=== PATIENT | male | born 1950 ===

== ENCOUNTER 2016-04-24 08:01 | Inpatient (IN) | payer OTHER ==
[~2016-04-24] VITALS: Ht 175.3 cm; Wt 107.8 kg
[~2016-04-24 08:01] MED LIST: ALBUTEROL HFA60 DOSE IN; ALBUTEROL2.5 MG/3 M IN; ASPIRIN ADULT L81 MG PO; AZITHROMYCIN500 MG PO; CEPHALEXIN500 MG PO; INVOKAMET 150-51 TAB PO; LOSARTAN POTASS25 MG PO; QVAR80 MCG IN; ZOCOR20 MG PO
--- NOTE | 2016-04-24 10:01 | DIAGNOSTIC IMAGING REPORT ---
PROCEDURE: CT ABD/PELVIS WITH CONTRAST CLINICAL INDICATION: Abdominal pain, nausea and vomiting, initial encounter. TECHNIQUE: 125 ml of Isovue 300 were injected intravenously and axial images were obtained of the entire abdomen and pelvis with sagittal and coronal reformations. COMPARISON: CT abdomen/pelvis 02/18/2016. FINDINGS: ABDOMEN: There is celiac surgical changes. Mild to moderately dilated loops of mid small bowel with normal caliber of the small bowel distally. Transition point appears to be in the mid pelvis. Dependent atelectasis in both lung bases posteriorly. Normal heart size. Enlarged liver (21 cm) with steatosis. The gallbladder, pancreas, spleen, adrenal glands and kidneys are normal. Mild atherosclerosis of the aorta. PELVIS: Appendix not visualized but no evidence of acute appendicitis. Minor diverticulosis of the proximal sigmoid colon. Enlarged prostate (5.5 cm. Normal bladder. No inflammatory changes or free fluid. Small fat containing inguinal hernias. Mild degenerative changes of the spine. IMPRESSION: 1. Mild to moderate dilated loops of mid small bowel with transition point in the mid pelvis, suggestive of a small bowel obstruction, possibly from adhesions 2. 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 Hepatomegaly and steatosis 4. Minor sigmoid diverticulosis 5. Results discussed with Dr. Mcdermott All CT scans at this facility use dose modulation, iterative reconstruction, and/or weight-based dosing when appropriate to reduce radiation dose to as low as reasonably achievable.
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
--- NOTE | 2016-04-24 10:16 | ED ORDER SUMMARY ---
..... Patient: AMINAH CORREIA OrderSheet [facility] VisitID: [id number] [address] [place] [address] 66y, M Registration Date/Time: 04/24/2016 ORDER SHEET Weight: 109.3 kg (stated) Allergies: No Known Drug Allergy GENERAL ORDERS: CBC w Diff Urgent (08:17 04/24/2016 Essie Zamora) (Ack 8:24 KHoerner) (8:32 LWhalen R.N.) CMP Urgent (08:04/24/2016 Essie Zamora) (Ack 8:24 KHoerner) (8:32 LWhalen R.N.) UA-Culture if indicated Urgent (:04/24/2016 Essie Zamora) (Ack 8:24 KHoerner) (8:32 LWhalen R.N.) PT with INR Urgent (08:04/24/2016 Essie Zamora) (Ack 8:24 KHoerner) (8:32 LWhalen R.N.) Lipase Urgent (08:17 04/24/2016 Essie Zamora) (Ack 8:24 KHoerner) (8:32 LWhalen R.N.) Lactate, Serum Urgent (08:17 04/24/2016 Essie Zamora) (Ack 8:24 KHoerner) (8:32 LWhalen R.N.) Pulse oximeter (08:17 04/24/2016 Essie Zamora) (Ack 8:24 KHoerner) (8:32 LWhalen R.N.) CT Abd/Pel w Cont (No) (N/A) Urgent (08:19 04/24/2016 Essie Zamora) (Ack 8:24 KHoerner) (8:32 LWhalen R.N.) Chest 1V Urgent (09:48 04/24/2016 LWhalen R.N. verbal order read back to Elizabet MENDIOLA) (Ack 9:53 KHoerner) (10:00 KHoerner) Blood Culture (No) (N/A) Urgent (09:51 04/24/2016 Elizabet MENDIOLA) (Ack 9:53 JRoesobeida) (11:45 LWhalen R.N.) BNP Urgent (10:04/24/2016 Elizabet MENDIOLA) (Ack 10:13 Lionel) (11:45 LWhalen R.N.) CPK Urgent (10:04/24/2016 Elizabet MENDIOLA) (Ack 10:13 Lionel) (11:45 LWhalrandy R.N.) Troponin-I Urgent (10:04/24/2016 Elizabet MENDIOLA) (Ack 10:13 Lionel) (11:45 LWhalrandy R.N.) EKG - ER Stat (10:04/24/2016 Elizabet MENDIOLA) (Ack 10:11 Lionel) (10:11 Lionel) MEDICATION ORDERS: IV FLUIDS: IV NS : initial bolus 1000 mL (1000 mL/hr), then none - for X1 (NOW) (08:17 04/24/2016 Essie Zamora) (8:31 LWhalen R.N.) Morphine IV 8 mg (HIGH ALERT MEDICATION, NOW) (08:17 04/24/2016 Essie Zamora) (8:31 LWhalrandy R.N.) Zofran IV 4 mg (NOW) (08:29 04/24/2016 Essie Zamora) (8:31 LWhalrandy R.N.) IV NS : initial bolus 1000 mL (1000 mL/hr), then none - for X1 (NOW) (09:15 04/24/2016 Essie Zamora) (Ack 9:17 LWhalen R.N.) (9:50 LWhalen R.N.) Zosyn IV 3.375 gm/50mL (NOW) (09:51 04/24/2016 Elizabet MENDIOLA) (10:35 LWhalrandy R.N.) Morphine IV 4 mg (HIGH ALERT MEDICATION, NOW) (10:20 04/24/2016 LWhalrandy R.N. verbal order read back to Elizabet MENDIOLA) (10:21 LWhalen R.N.) ORDER SHEET NOTES: [Electronically signed by Miryam Hernandez R.N. (15:34 04/24/2016)] [Electronically signed by Blake Mcdermott MD (16:05 04/24/2016)] [Electronically locked/signed by Miryam Hernandez R.N. (15:34 04/24/2016)]
--- NOTE | 2016-04-24 10:16 | ED ORDER SUMMARY ---
..... Patient: AMINAH CORREIA OrderSheet [facility] VisitID: [id number] [address] [place] [address] 66y, M Registration Date/Time: 04/24/2016 ORDER SHEET Weight: 109.3 kg (stated) Allergies: No Known Drug Allergy GENERAL ORDERS: CBC w Diff Urgent (08:17 04/24/2016 Essie Zamora) (Ack 8:24 KHoerner) (8:32 LWhalen R.N.) CMP Urgent (08:04/24/2016 Essie Zamora) (Ack 8:24 KHoerner) (8:32 LWhalen R.N.) UA-Culture if indicated Urgent (:04/24/2016 Essie Zamora) (Ack 8:24 KHoerner) (8:32 LWhalen R.N.) PT with INR Urgent (08:04/24/2016 Essie Zamora) (Ack 8:24 KHoerner) (8:32 LWhalen R.N.) Lipase Urgent (08:17 04/24/2016 Essie Zamora) (Ack 8:24 KHoerner) (8:32 LWhalen R.N.) Lactate, Serum Urgent (08:17 04/24/2016 Essie Zamora) (Ack 8:24 KHoerner) (8:32 LWhalen R.N.) Pulse oximeter (08:17 04/24/2016 Essie Zamora) (Ack 8:24 KHoerner) (8:32 LWhalen R.N.) CT Abd/Pel w Cont (No) (N/A) Urgent (08:19 04/24/2016 Essie Zamora) (Ack 8:24 KHoerner) (8:32 LWhalen R.N.) Chest 1V Urgent (09:48 04/24/2016 LWhalen R.N. verbal order read back to Elizabet MENDIOLA) (Ack 9:53 KHoerner) (10:00 KHoerner) Blood Culture (No) (N/A) Urgent (09:51 04/24/2016 Elizabet MENDIOLA) (Ack 9:53 JRoesobeida) (11:45 LWhalen R.N.) BNP Urgent (10:04/24/2016 Elizabet MENDIOLA) (Ack 10:13 Lionel) (11:45 LWhalen R.N.) CPK Urgent (10:04/24/2016 Elizabet MENDIOLA) (Ack 10:13 Lionel) (11:45 LWhalrandy R.N.) Troponin-I Urgent (10:04/24/2016 Elizabet MENDIOLA) (Ack 10:13 Lionel) (11:45 LWhalrandy R.N.) EKG - ER Stat (10:04/24/2016 Elizabet MENDIOLA) (Ack 10:11 Lionel) (10:11 Lionel) MEDICATION ORDERS: IV FLUIDS: IV NS : initial bolus 1000 mL (1000 mL/hr), then none - for X1 (NOW) (08:17 04/24/2016 Essie Zamora) (8:31 LWhalen R.N.) Morphine IV 8 mg (HIGH ALERT MEDICATION, NOW) (08:17 04/24/2016 Essie Zamora) (8:31 LWhalrandy R.N.) Zofran IV 4 mg (NOW) (08:29 04/24/2016 Essie Zamora) (8:31 LWhalrandy R.N.) IV NS : initial bolus 1000 mL (1000 mL/hr), then none - for X1 (NOW) (09:15 04/24/2016 Essie Zamora) (Ack 9:17 LWhalen R.N.) (9:50 LWhalen R.N.) Zosyn IV 3.375 gm/50mL (NOW) (09:51 04/24/2016 Elizabet MENDIOLA) (10:35 LWhalrandy R.N.) Morphine IV 4 mg (HIGH ALERT MEDICATION, NOW) (10:20 04/24/2016 LWhalrandy R.N. verbal order read back to Elizabet MENDIOLA) (10:21 LWhalen R.N.) ORDER SHEET NOTES: [Electronically signed by Miryam Hernandez R.N. (15:34 04/24/2016)] [Electronically signed by Blake Mcdermott MD (16:05 04/24/2016)] [Electronically locked/signed by Miryam Hernandez R.N. (15:34 04/24/2016)]
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
--- NOTE | 2016-04-24 10:17 | DIAGNOSTIC IMAGING REPORT ---
PROCEDURE: XR CHEST 1 VIEW INDICATION: DECREASED SAT'S TECHNIQUE: Portable AP view 09:57 a.m. COMPARISON: Chest 12/21/2015 and 03/05/2013 FINDINGS: Lungs are clear. Heart and mediastinum are normal. Thorax is normal. Poor inspiration IMPRESSION: 1. No acute infiltrates
[2016-04-24] MEDS ORDERED: SYNJARDY 12.5-11 TAB (11:19)
[2016-04-24] MEDS ORDERED: TRADJENTA5 MG PO (11:19)
[2016-04-24 11:54] VITALS: BP 137/82
--- NOTE | 2016-04-24 14:16 | HISTORY AND PHYSICAL ---
ADMITTED: 04/24/2016 CHIEF COMPLAINT: 1. Abdominal pain HISTORY OF PRESENT ILLNESS: A 66-year-old male with history of recurrent small- bowel obstruction presents with a recurrence of his usual pain. He states he has had similar symptoms about twice a year and he is used to it and can identify it. He notes increasing pain over the last day, associated with bloating and nausea and lack of appetite. He therefore presented to the [facility] for evaluation. Pain is described as sharp. He did not have any vomiting or diarrhea and has not had fevers or chills. MEDICAL/SURGICAL HISTORY: Past medical history remarkable for diabetes, hypertension, recurrent small bowel obstructions, hyperlipidemia, hemorrhoids. He has also had diverticulitis. Surgeries: Abdominal surgery, appendectomy, and cyst removal. MEDICATIONS: 1. Aspirin 325 mg p.o. daily. 2. Losartan 25 mg p.o. daily. 3. Simvastatin 20 mg p.o. daily. 4. Synjardy 12.5/100 mg p.o. b.i.d. 5. Tradjenta 5 mg p.o. daily. 6. ProAir puffer 2 puffs q.4 hours p.r.n. wheezing. 7. QVAR 80 mcg 2 puffs b.i.d. 8. Voltaren gel p.r.n. leg pain. ALLERGIES: 1. LISINOPRIL CAUSES COUGH. 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 Has 5 children. Habits: Smoking, none. Alcohol, none. Drug use, none. FAMILY HISTORY: Mother had an MN. Father at age 39 from congestive heart failure. Two siblings have had protein C deficiency and myocardial infarctions. REVIEW OF SYSTEMS: The patient denies URI symptoms, specifically denying cough, shortness of breath, wheezing, rhinitis, sore throat. General: Denies fevers, chills, malaise. Respiratory: Denies shortness of breath, wheezing, or cough. Cardiovascular: Denies palpitations, chest pain, or paroxysmal nocturnal dyspnea. Gastrointestinal: See above. Genitourinary: Denies dysuria, frequency, or hematuria. Musculoskeletal: Denies joint pain, swelling or restricted range of motion. Skin: Denies rash, itching or lesions. PHYSICAL EXAMINATION: GENERAL: Well-developed, well-nourished male in mild discomfort at the time of my evaluation. VITAL SIGNS: Blood pressure 131/82, heart rate 79, respirations 20, SaO2 of 95%. HEENT: Clear. NECK: Supple, without adenopathy or thyromegaly. CHEST: Clear to auscultation and percussion. HEART: Regular rate and rhythm without murmur. ABDOMEN: Mildly distended, with scant bowel sounds and moderate, diffuse tenderness, no rigidity. No guarding, no masses palpable. BACK: Straight, without CVA tenderness. Genitourinary/Rectal: Deferred. EXTREMITIES: Without cyanosis, clubbing, or edema. NEUROLOGIC: Intact and symmetric. SKIN: Unremarkable. LAB/IMAGING: EKG shows sinus rhythm with possible anterior infarct per EKG reading, but unchanged from prior. Chest x-ray is clear. CT abdomen shows small bowel obstruction, hepatomegaly, steatosis, and mild sigmoid diverticulosis. Labs: WBC 16.9, hemoglobin 17.9, hematocrit 55.2, platelets 229. INR 1.0. BNP 12.8. CK 99, troponin less than 0.05. Lactic acid 4.5, glucose 208, BUN 19, creatinine 1.1, sodium 142, potassium 4.2, chloride 104, bicarbonate 21. Bilirubin 0.8, alkaline phosphatase 76, AST 55, ALT 95. Lipase 245. IMPRESSION: 1. Small-bowel obstruction. 2. Possible early sepsis. Blood cultures pending. 3. Possible peritonitis. Blood cultures are pending. PLAN: Admit. The patient given an initial dose of IV antibiotics. Blood cultures are in place. Surgical consultation obtained with Dr. Gallego.
[2016-04-24 14:45] VITALS: BP 133/81
--- NOTE | 2016-04-24 16:05 | ED MAR SUMMARY ---
..... Medication Administration Record [facility] [address] [place] [address] Patient: AMINAH CORREIA Visit ID: [id number] 66y, M Weight: 109.3 kg Height/Length: 69 in BMI: 35.6 ALLERGIES: No Known Drug Allergy Start 08:21 04/24/2016 Miryam Hernandez R.N., Stop 09:49 04/24/2016 Miryam Hernandez R.N. Medication Administered: IV NS (SALINE), Dose: IV Fluids over 1 hour(s), Rate: 1000 mL/hr, Dispensed: 1000 mL bag, Site: #1 right hand. Medication Ordered: IV NS : initial bolus 1000 mL (1000 mL/hr), then none - for X1 (NOW). Given 08:26 04/24/2016 Miryam Hernandez R.N. Medication Administered: MORPHINE [IVP], Dose: 8 mg IVP over 2 minute(s), Site: #1 right hand. Medication Ordered: Morphine IV 8 mg (HIGH ALERT MEDICATION, NOW). Given 08:31 04/24/2016 Miryam Hernandez R.N. Medication Administered: ZOFRAN [IVP] (ONDANSETRON HCL), Dose: 4 mg IVP over 2 minute(s), Site: #1 right hand. Medication Ordered: Zofran IV 4 mg (NOW). Start 09:50 04/24/2016 Miryam Hernandez R.N., Continued Upon Disposition 11:36 04/24/2016 Miryam Hernandez R.N. Medication Administered: IV NS (SALINE), Dose: IV Fluids over 1 hour(s), Rate: 1000 mL/hr, Dispensed: 1000 mL bag, Site: #1 right hand. Medication Ordered: IV NS : initial bolus 1000 mL (1000 mL/hr), then none - for X1 (NOW). Given 10:16 04/24/2016 Miryam Hernandez R.N. Medication Administered: MORPHINE [IVP], Dose: 4 mg IVP over 2 minute(s), Site: #1 right hand. Medication Ordered: Morphine IV 4 mg (HIGH ALERT MEDICATION, NOW). Start 10:35 04/24/2016 Miryam Hernandez RWillN., Stop 11:20 04/24/2016 Miryam Hernandez R.N. Medication Administered: ZOSYN [IVPB] (PIPERACILLIN SOD-TAZOBACTAM SO), Dose: 3.375 gm IVPB over 1 hour(s), Rate: 100 mL/hr, Dispensed: 50 mL bag, Site: #1 right hand. Medication Ordered: Zosyn IV 3.375 gm/50mL (NOW).
--- NOTE | 2016-04-24 16:05 | ED MED RECONCILIATION SUMMARY ---
Patient: AMINAH CORREIA Medication Reconciliation Report [facility] VisitID: [id number] [address] [place] [address] 66y, M Registration Date/Time: 04/24/2016 Weight: 109.3 kg Height/Length: 69 in. BMI: 35.6 ALLERGIES: No Known Drug Allergy The patient's Home Medications are listed below: THE FOLLOWING MEDICATIONS NEED TO BE RECONCILED: Aspirin Oral (325 mg) 1 tablet, daily Losartan Potassium Oral (25 mg) 1 tablet, daily Qvar Inhalation (80 mcg/act) 2 puffs, BID Simvastatin Oral (20 mg) 1 tablet, daily Synjardy 12.06/999 mg 1 tablet BID Tradjenta Oral (5 mg) 1 tablet, daily The source(s) of the original Home Medication information: Not obtained. The following Medications were given to the patient in the Emergency Department: IV NS IV Fluids bolus 0, then 1000 mL/hr, administered: 04/24/2016 8:21:00 AM Morphine [IVP] IVP 8 mg, administered: 04/24/2016 8:26:00 AM Zofran [IVP] IVP 4 mg, administered: 04/24/2016 8:31:00 AM IV NS IV Fluids bolus 0, then 1000 mL/hr, administered: 04/24/2016 9:50:00 AM Morphine [IVP] IVP 4 mg, administered: 04/24/2016 10:16:00 AM Zosyn [IVPB] IVPB bolus 0, then 3.375 gm 100 mL/hr, administered: 04/24/2016 10:35:00 AM The following Medications were prescribed to the patient: None.
--- NOTE | 2016-04-24 16:05 | ED MAR SUMMARY ---
..... Medication Administration Record [facility] [address] [place] [address] Patient: AMINAH CORREIA Visit ID: [id number] 66y, M Weight: 109.3 kg Height/Length: 69 in BMI: 35.6 ALLERGIES: No Known Drug Allergy Start 08:21 04/24/2016 Miryam Hernandez R.N., Stop 09:49 04/24/2016 Miryam Hernandez R.N. Medication Administered: IV NS (SALINE), Dose: IV Fluids over 1 hour(s), Rate: 1000 mL/hr, Dispensed: 1000 mL bag, Site: #1 right hand. Medication Ordered: IV NS : initial bolus 1000 mL (1000 mL/hr), then none - for X1 (NOW). Given 08:26 04/24/2016 Miryam Hernandez R.N. Medication Administered: MORPHINE [IVP], Dose: 8 mg IVP over 2 minute(s), Site: #1 right hand. Medication Ordered: Morphine IV 8 mg (HIGH ALERT MEDICATION, NOW). Given 08:31 04/24/2016 Miryam Hernandez R.N. Medication Administered: ZOFRAN [IVP] (ONDANSETRON HCL), Dose: 4 mg IVP over 2 minute(s), Site: #1 right hand. Medication Ordered: Zofran IV 4 mg (NOW). Start 09:50 04/24/2016 Miryam Hernandez R.N., Continued Upon Disposition 11:36 04/24/2016 Miryam Hernandez R.N. Medication Administered: IV NS (SALINE), Dose: IV Fluids over 1 hour(s), Rate: 1000 mL/hr, Dispensed: 1000 mL bag, Site: #1 right hand. Medication Ordered: IV NS : initial bolus 1000 mL (1000 mL/hr), then none - for X1 (NOW). Given 10:16 04/24/2016 Miryam Hernandez R.N. Medication Administered: MORPHINE [IVP], Dose: 4 mg IVP over 2 minute(s), Site: #1 right hand. Medication Ordered: Morphine IV 4 mg (HIGH ALERT MEDICATION, NOW). Start 10:35 04/24/2016 Miryam Hernandez RWillN., Stop 11:20 04/24/2016 Miryam Hernandez R.N. Medication Administered: ZOSYN [IVPB] (PIPERACILLIN SOD-TAZOBACTAM SO), Dose: 3.375 gm IVPB over 1 hour(s), Rate: 100 mL/hr, Dispensed: 50 mL bag, Site: #1 right hand. Medication Ordered: Zosyn IV 3.375 gm/50mL (NOW).
--- NOTE | 2016-04-24 16:05 | ED DISCHARGE INSTRUCTIONS ---
Patient: AMINAH CORREIA General Instructions [facility] VisitID: [id number] [address] [place] [address] 66y, M Registration Date/Time: 04/24/2016 Bowel obstruction. Sepsis. Peritonitis. (Electronically signed by Blake Mcdermott MD 04/24/2016 16:05)
--- NOTE | 2016-04-24 16:05 | ED MED RECONCILIATION SUMMARY ---
Patient: AMINAH CORREIA Medication Reconciliation Report [facility] VisitID: [id number] [address] [place] [address] 66y, M Registration Date/Time: 04/24/2016 Weight: 109.3 kg Height/Length: 69 in. BMI: 35.6 ALLERGIES: No Known Drug Allergy The patient's Home Medications are listed below: THE FOLLOWING MEDICATIONS NEED TO BE RECONCILED: Aspirin Oral (325 mg) 1 tablet, daily Losartan Potassium Oral (25 mg) 1 tablet, daily Qvar Inhalation (80 mcg/act) 2 puffs, BID Simvastatin Oral (20 mg) 1 tablet, daily Synjardy 12.06/999 mg 1 tablet BID Tradjenta Oral (5 mg) 1 tablet, daily The source(s) of the original Home Medication information: Not obtained. The following Medications were given to the patient in the Emergency Department: IV NS IV Fluids bolus 0, then 1000 mL/hr, administered: 04/24/2016 8:21:00 AM Morphine [IVP] IVP 8 mg, administered: 04/24/2016 8:26:00 AM Zofran [IVP] IVP 4 mg, administered: 04/24/2016 8:31:00 AM IV NS IV Fluids bolus 0, then 1000 mL/hr, administered: 04/24/2016 9:50:00 AM Morphine [IVP] IVP 4 mg, administered: 04/24/2016 10:16:00 AM Zosyn [IVPB] IVPB bolus 0, then 3.375 gm 100 mL/hr, administered: 04/24/2016 10:35:00 AM The following Medications were prescribed to the patient: None.
--- NOTE | 2016-04-24 16:05 | ED DISCHARGE INSTRUCTIONS ---
Patient: AMINAH CORREIA General Instructions [facility] VisitID: [id number] [address] [place] [address] 66y, M Registration Date/Time: 04/24/2016 Bowel obstruction. Sepsis. Peritonitis. (Electronically signed by Blake Mcdermott MD 04/24/2016 16:05)
[2016-04-24 18:26] VITALS: BP 146/78
[2016-04-25 02:01] VITALS: BP 131/79
[2016-04-25 06:53] VITALS: BP 130/73
--- NOTE | 2016-04-25 07:19 | Progress Note ---
Subjective General Brief hx: 66 year old male admitted with: 1. Small-bowel obstruction. 2. Possible early sepsis. Blood cultures pending. 3. Possible peritonitis. Blood cultures are pending. States he is doing better this am. Feels totally normal after last night. No cp, sob. Physical Exam Vital Signs / I&Os Vital Signs Date Time Temp Pulse Resp B/P Pulse O2 O2 Flow FiO2 Ox Delivery Rate 04/25 0653 98.1 68 16 130/73 95 Nasal 0.0 Cannula 04/25 0201 98.2 65 16 131/79 95 Nasal 2.0 Cannula 04/24 1826 97.3 74 20 146/78 90 Nasal 2.0 Cannula 04/24 1445 97.5 75 22 133/81 90 Nasal 2.0 Cannula 04/24 1306 2.0 04/24 1225 2.0 04/24 1154 98.2 73 22 137/82 Nasal 4.0 Cannula I&O 04/25 0000 04/24 1600 04/24 0800 Intake Total 993 Output Total 2525 Balance -1532 General Appearance Alert, Cooperative Lungs Clear to auscultation, Normal air movement Cardiovascular Regular rate and rhythm Abdomen Soft, has minimal tenderness that is diffuse (always that way a week or 2 post episode per patient.) Extremities No edema LAB Results Laboratory Tests 04/25 04/24 04/24 04/24 0515 1130 0835 0835 Chemistry Plasma Sodium (136 - 145 mmol/L) 143 Plasma Potassium (3.5 - 5.1 mmol/L) 3.9 Plasma Chloride (98 - 107 mmol/L) 108 CO2 (Enzymatic) (21 - 32 mmol/L) 25 BUN (7 - 18 mg/dL) 15 Creatinine (0.6 - 1.3 mg/dL) 0.8 Est GFR ( Amer) (mL/min) >60 Est GFR (Non-Af Amer) (mL/min) >60 Glucose (70 - 110 mg/dL) 142 Lactic Acid (0.4 - 2.0 mmol/L) 4.5 Plasma Calcium (8.5 - 10.1 mg/dL) 8.2 Plasma Magnesium (1.8 - 2.4 mg/dL) 2.0 Total Bilirubin (0.0 - 1.0 mg/dL) 1.0 AST (15 - 37 U/L) 27 ALT (12 - 78 U/L) 60 Alkaline Phosphatase (46 - 116 U/L) 39 Creatine Kinase (24 - 260 U/L) 99 Troponin (0.00 - 1.5 ng/mL) <0.05 Total Protein (6.4 - 8.2 g/dL) 6.2 Albumin (3.3 - 5.0 g/dL) 2.9 Lipase (73 - 393 U/L) 100 Hematology WBC (4.5 - 11.5 K/uL) 5.8 RBC (4.50 - 5.90 M/uL) 5.06 Hgb (13.5 - 17.5 gm/dL) 14.7 Hct (41.0 - 53.0 %) 45.2 MCV (80 - 100 fL) 89 MCH (26 - 34 pg) 29 RDW (11.6 - 14.8 %) 15.1 Neut % (Auto) (50 - 75 %) 67.4 Lymph % (Auto) (25 - 40 %) 19.1 [place] % (Auto) (3 - 14 %) 11.5 Eos % (Auto) (0 - 4 %) 1.5 Baso % (Auto) (0 - 2 %) 0.5 Plt Count, EDTA (150 - 400 K/uL) 188 PUBS MCHC (31 - 37 g/dL) 33 Urines Urine Color YELLOW Urine Appearance CLEAR Urine pH (5.0 - 8.0) 5.5 Ur Specific [place] (1.010 - 1.030) 1.010 Urine Protein (NEGATIVE) NEGATIVE Urine Ketones (NEGATIVE) TRACE Urine Blood (NEGATIVE) NEGATIVE Urine Nitrite (NEGATIVE) NEGATIVE Urine Bilirubin (NEGATIVE) NEGATIVE Urine Urobilinogen (0.2 - 1.0 EU/dL) 0.2 Ur Leukocyte Esterase (NEGATIVE) NEGATIVE Urine RBC (0 - 1 rbc/hpf) NONE SEEN Urine WBC (0 - 1 wbc/hpf) 0-1 Ur Epithelial Cells (0 - 5 EPI/hpf) NONE SEEN Urine Bacteria (NONE SEEN) NONE SEEN Urine Glucose (NEGATIVE) 3+ Urine Comment CULT NOT INDICATED 04/24 04/24 0835 0835 Chemistry Plasma Sodium (136 - 145 mmol/L) 142 Plasma Potassium (3.5 - 5.1 mmol/L) 4.2 Plasma Chloride (98 - 107 mmol/L) 104 CO2 (Enzymatic) (21 - 32 mmol/L) 21 BUN (7 - 18 mg/dL) 19 Creatinine (0.6 - 1.3 mg/dL) 1.1 Est GFR ( Amer) (mL/min) >60 Est GFR (Non-Af Amer) (mL/min) >60 Glucose (70 - 110 mg/dL) 208 Plasma Calcium (8.5 - 10.1 mg/dL) 9.6 Total Bilirubin (0.0 - 1.0 mg/dL) 0.8 AST (15 - 37 U/L) 55 ALT (12 - 78 U/L) 95 Alkaline Phosphatase (46 - 116 U/L) 76 B-Natriuretic Peptide (5 - 100 pg/ml) 12.8 Total Protein (6.4 - 8.2 g/dL) 7.7 Albumin (3.3 - 5.0 g/dL) 4.3 Lipase (73 - 393 U/L) 245 Coagulation INR (0.8 - 1.2) 1.0 Hematology WBC (4.5 - 11.5 K/uL) 16.9 RBC (4.50 - 5.90 M/uL) 6.22 Hgb (13.5 - 17.5 gm/dL) 17.9 Hct (41.0 - 53.0 %) 55.2 MCV (80 - 100 fL) 89 MCH (26 - 34 pg) 29 RDW (11.6 - 14.8 %) 14.6 Neut % (Auto) (50 - 75 %) 86.2 Lymph % (Auto) (25 - 40 %) 9.9 [place] % (Auto) (3 - 14 %) 3.6 Eos % (Auto) (0 - 4 %) 0.2 Baso % (Auto) (0 - 2 %) 0.1 Plt Count, EDTA (150 - 400 K/uL) 229 RBC Morphology 1+ ANISOCYTOSIS PUBS MCHC (31 - 37 g/dL) 32 Microbiology Date/Time Procedure - Status Source Growth 04/24 1030 Blood Culture - RECD BLOOD 04/24 1015 Blood Culture - RECD BLOOD Assessment and Plan Problem List 1. Small bowel obstruction Plan States it "broke last night" stooling and flatus. Feels great and would like to d/c home. No concerns per patient. 2. Diabetes mellitus Plan stable 3. Renal insufficiency Plan stable 4. Peritonitis Plan Has tenderness but normal and not wanting abx if labs etc normal. Will call if worsens at all. d/c today 5. Lactic acid acidosis Plan re check on lactic acid this am
--- NOTE | 2016-04-25 07:21 | Provider's Discharge Care Plan ---
Problem, Goal, Plan Problem List 1. Small bowel obstruction Instructions: Follow up as needed, advance diet as tolerates 2. Diabetes mellitus Instructions: Take meds as directed 3. Peritonitis Instructions: if any increase in abdominal pain or fevers etc then call right away
== END 2016-04-25 08:50 | disposition home or self-care (01) | DRG 389 ==
LOC: ED SRH 08:01 → TRANS SRH 10:21 → ACUTE2 SRH 11:45
PROVIDERS: ADMIT Emergency Medicine
DX: K56.60 Unspecified intestinal obstruction (principal); R11.0 Nausea; E87.2 Acidosis; E11.8 Type 2 diabetes mellitus with unspecified complications; J44.9 Chronic obstructive pulmonary disease, unspecified; N28.9 Disorder of kidney and ureter, unspecified; I10 Essential (primary) hypertension
CPT/HCPCS: 85241; 90004; 90065; 90074; 90098; 90100; 90616; 91320; 92031; 92235; 92610; 92720; 94060; 95059

== ENCOUNTER 2016-08-08 10:00 | Inpatient (IN) | payer OTHER ==
[~2016-08-08] VITALS: Ht 175.3 cm; Wt 111.8 kg
[~2016-08-08 10:00] MED LIST changes: +SYNJARDY 12.5-11 TAB; +TRADJENTA5 MG PO
--- NOTE | 2016-08-08 11:27 | DIAGNOSTIC IMAGING REPORT ---
PROCEDURE: XR ABDOMEN 1 VIEW INDICATION: ABDOMINAL PAIN TECHNIQUE: AP supine and upright views. COMPARISON: Abdominal film 02/18/2016 FINDINGS: Bowel gas pattern is normal. Epigastric surgical clips. No masses or unusual calcifications. Atherosclerosis. Osseous structures are unremarkable. IMPRESSION: 1. Nonspecific bowel gas pattern 2. Epigastric surgical changes
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
--- NOTE | 2016-08-08 13:14 | ED ORDER SUMMARY ---
..... Patient: AMINAH CORREIA OrderSheet [facility] VisitID: [id number] [address] [place] [address] 66y, M Registration Date/Time: 08/08/2016 ORDER SHEET Weight: 108.8 kg (stated) Allergies: No Known Drug Allergy GENERAL ORDERS: CBC w Diff Urgent (10:28 08/08/2016 JBoardley R.N. per protocol) (Ack 10:47 LNations ER Tech1) (10:49 JBoardley R.N.) CMP Urgent (10:28 08/08/2016 JBoardley R.N. per protocol) (Ack 10:47 LNations ER Tech1) (10:49 JBoardley R.N.) Abdomen 1V Urgent (10:32 08/08/2016 JBoardley R.N. verbal order read back to Elizabet MENDIOLA) (10:42 JBoardley R.N.) UA-Culture if indicated Urgent (11:32 08/08/2016 Elizabet MENDIOLA) (Ack 11:40 LNations ER Tech1) (11:56 JBoardley R.N.) Amylase Urgent (11:32 08/08/2016 Elizabet MENDIOLA) (Ack 11:40 LNations ER Tech1) (11:57 JBoardley R.N.) Lipase Urgent (11:32 08/08/2016 Elizabet MENDIOLA) (Ack 11:40 LNations ER Tech1) (11:57 JBoardley R.N.) US Abdomen Limited (No) Urgent (12:23 08/08/2016 Elizabet MENDIOLA) (Ack 12:24 LNations ER Tech1) (13:08 JBoardley R.N.) MEDICATION ORDERS: Levsin SL 0.125 mg (NOW) (14:06 08/08/2016 JBoardley R.N. verbal order read back to Kavin Zarate) (14:07 JBoardley R.N.) IV FLUIDS: Zofran IV 4 mg (NOW) (10:28 08/08/2016 JBoardley R.N. per protocol) (10:29 JBoardley R.N.) IV NS : initial bolus none -, then 1000 mL/hr for X1 (NOW) (10:28 08/08/2016 JBoardley R.N. per protocol) (10:28 JBoardley R.N.) IV NS : initial bolus none -, then 250 mL/hr for X4 (NOW) (11:21 08/08/2016 JBoardley R.N. per protocol) (11:22 JBoardley R.N.) Dilaudid IV 1 mg (HIGH ALERT MEDICATION, NOW) (11:31 08/08/2016 Elizabet MENDIOLA) (Ack 11:32 JBoardley R.N.) (11:39 JBoardley R.N.) Zofran IV 4 mg (NOW) (11:39 08/08/2016 JBoardley R.N. verbal order read back to Elizabet MENDIOLA) (11:40 JBoardley R.N.) Dilaudid IV 0.5 mg (HIGH ALERT MEDICATION, NOW) (13:56 08/08/2016 JBoardley R.N. verbal order read back to Elizabet MENDIOLA) (13:56 JBoardley R.N.) ORDER SHEET NOTES: [Electronically signed by Conner Taveras R.N. (14:35 08/08/2016)] [Electronically signed by Blake Mcdermott MD (17:31 08/08/2016)] [Electronically locked/signed by Conner Taveras R.N. (14:35 08/08/2016)]
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
--- NOTE | 2016-08-08 13:14 | ED ORDER SUMMARY ---
..... Patient: AMINAH CORREIA OrderSheet [facility] VisitID: [id number] [address] [place] [address] 66y, M Registration Date/Time: 08/08/2016 ORDER SHEET Weight: 108.8 kg (stated) Allergies: No Known Drug Allergy GENERAL ORDERS: CBC w Diff Urgent (10:28 08/08/2016 JBoardley R.N. per protocol) (Ack 10:47 LNations ER Tech1) (10:49 JBoardley R.N.) CMP Urgent (10:28 08/08/2016 JBoardley R.N. per protocol) (Ack 10:47 LNations ER Tech1) (10:49 JBoardley R.N.) Abdomen 1V Urgent (10:32 08/08/2016 JBoardley R.N. verbal order read back to Elizabet MENDIOLA) (10:42 JBoardley R.N.) UA-Culture if indicated Urgent (11:32 08/08/2016 Elizabet MENDIOLA) (Ack 11:40 LNations ER Tech1) (11:56 JBoardley R.N.) Amylase Urgent (11:32 08/08/2016 Elizabet MENDIOLA) (Ack 11:40 LNations ER Tech1) (11:57 JBoardley R.N.) Lipase Urgent (11:32 08/08/2016 Elizabet MENDIOLA) (Ack 11:40 LNations ER Tech1) (11:57 JBoardley R.N.) US Abdomen Limited (No) Urgent (12:23 08/08/2016 Elizabet MENDIOLA) (Ack 12:24 LNations ER Tech1) (13:08 JBoardley R.N.) MEDICATION ORDERS: Levsin SL 0.125 mg (NOW) (14:06 08/08/2016 JBoardley R.N. verbal order read back to Kavin Zarate) (14:07 JBoardley R.N.) IV FLUIDS: Zofran IV 4 mg (NOW) (10:28 08/08/2016 JBoardley R.N. per protocol) (10:29 JBoardley R.N.) IV NS : initial bolus none -, then 1000 mL/hr for X1 (NOW) (10:28 08/08/2016 JBoardley R.N. per protocol) (10:28 JBoardley R.N.) IV NS : initial bolus none -, then 250 mL/hr for X4 (NOW) (11:21 08/08/2016 JBoardley R.N. per protocol) (11:22 JBoardley R.N.) Dilaudid IV 1 mg (HIGH ALERT MEDICATION, NOW) (11:31 08/08/2016 Elizabet MENDIOLA) (Ack 11:32 JBoardley R.N.) (11:39 JBoardley R.N.) Zofran IV 4 mg (NOW) (11:39 08/08/2016 JBoardley R.N. verbal order read back to Elizabet MENDIOLA) (11:40 JBoardley R.N.) Dilaudid IV 0.5 mg (HIGH ALERT MEDICATION, NOW) (13:56 08/08/2016 JBoardley R.N. verbal order read back to Elizabet MENDIOLA) (13:56 JBoardley R.N.) ORDER SHEET NOTES: [Electronically signed by Conner Taveras R.N. (14:35 08/08/2016)] [Electronically signed by Blake Mcdermott MD (17:31 08/08/2016)] [Electronically locked/signed by Conner Taveras R.N. (14:35 08/08/2016)]
--- NOTE | 2016-08-08 13:38 | DIAGNOSTIC IMAGING REPORT ---
PROCEDURE: US ABDOMEN ULTRASOUND-LIMITED INDICATION: PAIN TECHNIQUE: Brennan scale and color Doppler sonographic images of the abdomen were obtained without comparison. COMPARISON: Abdomen CT dated 04/24/2016 FINDINGS: The liver is enlarged and demonstrates dense increased echogenicity. Ultrasound of penetration of the liver was difficult. The gallbladder is normal without stones or sludge. The wall is normal thickness measuring 2.8 mm No pericholecystic fluid or Mercado sign. The extrahepatic common duct is at the upper limits of normal measuring 7.6 mm The visualized pancreas is normal without ductal dilatation or peripancreatic fluid collection. The abdominal aorta is normal in its course and caliber. The retrohepatic inferior vena cava is patent. There is appropriate hepatopetal flow in the portal vein. The right kidney measures 13.4 cm in length. There is a trace of ascites in the right upper quadrant. Prominent dilated loops of bowel were also noted. IMPRESSION: 1. Hepatomegaly and cirrhosis. Trace of ascites in the right upper quadrant.
--- NOTE | 2016-08-08 14:38 | Progress Note ---
Subjective General Patient with ? SBO vs pancreatitis, hx of DM, htn, high chol. Plan: IVF, pain meds, NPO, levsin, surgical consult.
--- NOTE | 2016-08-08 14:38 | Progress Note ---
Subjective General Patient with ? SBO vs pancreatitis, hx of DM, htn, high chol. Plan: IVF, pain meds, NPO, levsin, surgical consult.
[2016-08-08 14:45] VITALS: BP 134/66
--- NOTE | 2016-08-08 15:43 | HISTORY AND PHYSICAL ---
ADMITTED: 08/08/2016 CHIEF COMPLAINT: 1. Abdominal pain HISTORY OF PRESENT ILLNESS: The patient states that he woke up at about 4 a.m. with severe abdominal pain. The pain is coming and going, with a crampy sensation. He started out with nausea and vomiting as well. He has had multiple episodes similar in the past from small-bowel obstruction, and he went in to the emergency department for further evaluation. In the ED, they did a workup that showed some nonspecific findings, and also some elevation in lipase, and he is currently being admitted for abdominal pain and pancreatitis and abnormal ultrasound results. MEDICAL/SURGICAL HISTORY: Past medical history: He has had diabetes, hypertension, obesity, arthritis, abnormal liver function tests, hypercholesterolemia, osteoarthritis, and family history of heart disease. Past surgical history: Abdominal surgery back in 1986, and occasionally small bowel obstructions since. MEDICATIONS: 1. Omeprazole 20 mg p.o. daily. 2. Tradjenta 5 mg p.o. daily. 3. Synjardy 12.06/999, one p.o. b.i.d. 4. QVAR 80 mcg 2 puffs p.o. daily. 5. Aspirin 81 mg p.o. daily. 6. Simvastatin 20 mg p.o. daily. 7. Losartan 25 mg p.o. daily. 8. Triamcinolone acetonide cream, apply b.i.d. as needed for itching rash. 9. ProAir HFA 2 puffs q.4 hours p.r.n. itching. ALLERGIES: 1. LISINOPRIL. SOCIAL HISTORY: He is , Jehovah'S Witness, retired from the [employer]. He has 5 children. FAMILY HISTORY: HIs mom at a young age of a heart attack. Father at age 39 of CHF. Brother had protein C deficiency, and sister had protein C deficiency, both have had heart attacks. REVIEW OF SYSTEMS: He has the abdominal pain and some cramps, nausea, vomiting, decreased bowel sounds, no passing of gas or stool since the abdominal pain has come on, with similar episodes in the past. No problems with strength or sensation or fevers. PHYSICAL EXAMINATION: GENERAL: He is an alert male who is lying in the emergency department, talking in full sentences, in no apparent distress until he gets a crampy abdominal pain, and then moans. VITAL SIGNS: Blood pressure 125/71, heart rate of 66, respirations 14, saturating 98% on room air, temperature is 98. HEENT: Extraocular movements intact. Pupils equal, round, and reactive to light. Oropharynx is with moist mucous membranes. NECK: Supple, without lymphadenopathy. LUNGS: Clear to auscultation bilaterally. HEART: Regular rate and rhythm. No murmur. ABDOMEN: Distended and diffusely mildly tender, and then crampy pain at times. GENITOURINARY: Deferred. RECTAL: Deferred. NEUROLOGIC: Cranial nerves II-XII intact. Strength and sensation grossly intact. LAB/IMAGING: CBC: White count 8.6, hematocrit 52.7, platelets of 195. Comprehensive metabolic panel: Glucose 185, BUN 17, creatinine 1.0, sodium 136, potassium 4.2, chloride of 100, carbon dioxide 24, calcium 8.8, total protein 7.9, albumin 4.2, total bilirubin 0.8, alkaline phosphatase 72, AST of 95, ALT of 119, lipase of 526, amylase of 95. A urinalysis is with 3+ glucose, specific gravity 1.015, and negative leukocyte esterase, negative nitrite. X-ray abdomen shows nonspecific bowel gas patterns and epigastric surgical changes. An ultrasound of the abdomen with comparison of a CT from 08/2016 has hepatomegaly and cirrhosis, trace ascites in the right upper quadrant. IMPRESSION: 1. This is a 66-year-old male who presents to the emergency department with abdominal pain and abnormal lipase He also has some nonspecific bowel gas changes on abdominal x-ray. He has a history of small-bowel obstruction that is recurrent. He has abnormal liver function tests and lipase. He is being admitted for possible small- bowel obstruction versus pancreatitis versus other process. PLAN: We will plan for n.p.o., IV fluids, IV pain medicines, diabetes sliding scale. THE PATIENT IS DESIRING TO BE A FULL CODE, and discussed this in detail. Also he will have a surgical consult regarding his abdominal pain issues. He will also try some Levsin to see if this helps out with his crampy symptoms, and I anticipate he will be in the hospital for potentially a short term, less than 48 hours is what I hope for. If he does not start improving by tomorrow, I would anticipate that we will need to convert him to inpatient status, depending on what surgery states.
[2016-08-08 16:32] VITALS: BP 136/48
--- NOTE | 2016-08-08 17:29 | Consultation Report ---
Admission Admit Date 08/08/16 History Chief Complaint Abdominal pain History of Present Illness 66-year-old male who approximately 12 hours prior to admission developed acute onset abdominal pain. Located mid abdomen, nonradiating, worsened throughout the day again remaining localized. He described as being colicky in nature and severe. Vomited 3 times. Denies any fever or chills. Patient had a bowel movement on the day of admission, but has not passed any flatus since yesterday. Patient's last hospitalization at [facility] loose in April 2016 he was hospitalized for one day, with similar complaints and discharged before the consulting surgeon, could evaluate the patient. He states that he has been admitted to [facility] 9-10 times similar symptoms. In 1988. Patient underwent exploratory laparotomy to remove this cyst that was located between his bowel and his bladder, the lesion was benign, proximal 6 inches of bowel was removed. [facility] Patient History 1. Small bowel obstruction 2. Diabetes mellitus 3. Pancreatitis 4. Abdominal pain Social History . Forceps and one natural daughter. They are all alive and well. 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 PAST MEDICAL/SURGICAL HISTORY: As described previously, for laparotomy. Tonsillectomy adenoidectomy. History of hypertension. Cmg-byrqzxa-scrdxtnfv diabetic. COPD FAMILY HISTORY: Mother at age 86 natural causes. Father age 39 [place]. Family carried diagnosis of protein C deficiency. Patient had a brother 6 sisters, 4 brothers , one from an MT, one from cancer of unknown etiology, protein C deficiency, and neck fracture. 3 sisters , one from a pulmonary embolus, one from protein C deficiency and the last sister from pneumonia Medications and Allergies Medications Current Medications Sig/Pramod Start time Last Medication Dose Route Stop Time Status Admin Hydromorphone HCl 1 MG Q1H PRN 08/08 1700 AC IV Hydromorphone HCl 2 MG Q1H PRN 08/08 1700 AC 08/08 IV 1703 Ondansetron HCl 4 MG Q6H PRN 08/08 1645 AC 08/08 IV 1646 Insulin Human Lispro See Dose ACHS 08/08 1630 AC Insts (1) SC Acetaminophen 650 MG Q6H PRN 08/08 1400 AC PO Dextrose 50 ML PRN PRN 08/08 1400 AC IV Hyoscyamine Sulfate See Dose Q4H PRN 08/08 1400 AC Insts (2) SL Sodium Chloride 1,000 ML ASDIRECTED 08/08 1400 AC 08/08 IV 1444 Dose Instructions: (1)Insulin Human Lispro: LOW DOSE: ACCUCHECK AND SLIDING SCALE >>To change sliding scale DISCONTINUE this order and enter a NEW order. Thanks< (2)Hyoscyamine Sulfate: 0.125 - 0.25 MG Allergies Coded Allergies: NKA (12/07/15) Reconcile Medications Scheduled Medications Aspirin (Aspirin Adult Low Strength 81 MG) 81 MG CHW 325 PO DAILY (Reported) Beclomethasone Dipropionate (Qvar 80 Mcg) 80 MCG AER 2 PUFF IN BID (Reported) Empagliflozin-Metformin HCl 12.5-1000 MG (Synjardy 12.5-1000 MG) 1 TAB TAB 1 TAB BID (Reported) Linagliptin (Tradjenta) 5 MG TAB 5 MG PO DAILY (Reported) Losartan Potassium (Losartan Potassium 25 MG) (Unknown Strength) TAB 25 MG PO DAILY (Reported) Simvastatin (Zocor) (Unknown Strength) TAB 20 MG PO DAILY (Reported) Review of Systems Other Patient denies any history of hepatitis, jaundice, many fever, heart murmurs, requiring antibiotics, bleeding tendencies, blood transfusions, chest pain, shortness of breath, chronic cough, hemoptysis, blackouts, seizures, bright red blood rectum, and stool, claudication, lower extremity swelling. Remaining 12 point review of systems negative Physical Exam Vital Signs / I&Os Vital Signs Date Time Temp Pulse Resp B/P Pulse O2 O2 Flow FiO2 Ox Delivery Rate 08/08 1625 Nasal 1.0 Cannula 08/08 1505 72 16 91 2.0 08/08 1445 97.9 69 18 134/66 93 Room Air General Appearance Alert, Oriented X3, Cooperative, Moderate distress HEENT Normal exam, Atraumatic, PERRLA, EOMI, Moist mucous membranes Lungs Clear to auscultation Neck Supple, No JVD, No masses, No thyromegaly, No lymphadenopathy, 2+ carotid pulse wo bruit Cardiovascular Regular rate and rhythm Abdomen prominent obese abdomen. Midline incisional scar. No hernia. Active bowel sounds. Nontympanitic. Tender to palpation with voluntary guarding. Extremities No cyanosis, No clubbing, No edema Skin warm and dry Neurological No lateralizing signs Psych/Mental Status Mental status normal LAB Results Laboratory Tests 08/08 08/08 08/08 1020 1132 1140 Chemistry Plasma Sodium (136 - 145 mmol/L) 136 Plasma Potassium (3.5 - 5.1 mmol/L) 4.2 Plasma Chloride (98 - 107 mmol/L) 100 CO2 (Enzymatic) (21 - 32 mmol/L) 24 BUN (7 - 18 mg/dL) 17 Creatinine (0.6 - 1.3 mg/dL) 1.0 Est GFR ( Amer) (mL/min) >60 Est GFR (Non-Af Amer) (mL/min) >60 Glucose (70 - 110 mg/dL) 185 Plasma Calcium (8.5 - 10.1 mg/dL) 8.8 Total Bilirubin (0.0 - 1.0 mg/dL) 0.8 AST (15 - 37 U/L) 95 ALT (12 - 78 U/L) 119 Alkaline Phosphatase (46 - 116 U/L) 72 Total Protein (6.4 - 8.2 g/dL) 7.9 Albumin (3.3 - 5.0 g/dL) 4.2 Amylase (25 - 115 U/L) 95 Cancelled Lipase (73 - 393 U/L) 526 Cancelled Hematology WBC (4.5 - 11.5 K/uL) 8.6 RBC (4.50 - 5.90 M/uL) 5.93 Hgb (13.5 - 17.5 gm/dL) 17.5 Hct (41.0 - 53.0 %) 52.7 MCV (80 - 100 fL) 89 MCH (26 - 34 pg) 30 RDW (11.6 - 14.8 %) 14.6 Neut % (Auto) (50 - 75 %) 78.4 Lymph % (Auto) (25 - 40 %) 14.7 [place] % (Auto) (3 - 14 %) 6.1 Eos % (Auto) (0 - 4 %) 0.7 Baso % (Auto) (0 - 2 %) 0.1 Plt Count, EDTA (150 - 400 K/uL) 195 PUBS MCHC (31 - 37 g/dL) 33 Urines Urine Color YELLOW Urine Appearance CLEAR Urine pH (5.0 - 8.0) 5.5 Ur Specific [place] (1.010 - 1.030) 1.015 Urine Protein (NEGATIVE) NEGATIVE Urine Ketones (NEGATIVE) NEGATIVE Urine Blood (NEGATIVE) NEGATIVE Urine Nitrite (NEGATIVE) NEGATIVE Urine Bilirubin (NEGATIVE) NEGATIVE Urine Urobilinogen (0.2 - 1.0 EU/dL) 0.2 Ur Leukocyte Esterase (NEGATIVE) NEGATIVE Urine RBC (0 - 1 rbc/hpf) NONE SEEN Urine WBC (0 - 1 wbc/hpf) 0-1 Ur Epithelial Cells (0 - 5 EPI/hpf) NONE SEEN Urine Bacteria (NONE SEEN) TRACE (<1+) Urine Glucose (NEGATIVE) 3+ Urine Comment CULT NOT INDICATED Imaging Upright abdominal x-rays, nonspecific bowel gas pattern. Ultrasound no evidence of cholelithiasis. Assessment and Plan Problem List 1. Small bowel obstruction Plan Patient long-standing history of partial small bowel obstruction, which resolved spontaneously in the past. Similar symptoms. Upright abdominal x-ray no evidence of obstruction. Recommend repeat upright abdominal x-ray in a.m. Treatment judiciously with opioids and nonsteroidal anti-inflammatories. 2. Pancreatitis Plan Lipase elevated which could account for his abdominal discomfort. There is no free air under the diaphragm on x-ray, doubt perforation small bowel leading to elevated lipase. Patient has elevated SGOT, SGPT, and fatty liver disease. Pancreatitis may be associated with medication or even hyperlipidemia. Recommend continue to monitor his serum lipase and keep patient n.p.o. 3. Abdominal pain Plan Abdominal pain may be related to partial small bowel obstruction versus pancreatitis.
--- NOTE | 2016-08-08 17:31 | ED MED RECONCILIATION SUMMARY ---
Patient: AMINAH CORREIA Medication Reconciliation Report [facility] VisitID: [id number] [address] [place] [address] 66y, M Registration Date/Time: 08/08/2016 Weight: 108.8 kg Height/Length: 69 in. BMI: 35.4 ALLERGIES: No Known Drug Allergy The patient's Home Medications are listed below: THE FOLLOWING MEDICATIONS NEED TO BE RECONCILED: Aspirin Oral (325 mg) 1 tablet, daily Losartan Potassium Oral (25 mg) 1 tablet, daily Qvar Inhalation (80 mcg/act) 2 puffs, BID Simvastatin Oral (20 mg) 1 tablet, daily Synjardy 12.06/999 mg 1 tablet BID Tradjenta Oral (5 mg) 1 tablet, daily The source(s) of the original Home Medication information: patient The following Medications were given to the patient in the Emergency Department: IV NS IV Fluids bolus 0, then 1000 mL/hr, administered: 08/08/2016 10:28:00 AM Zofran [IVP] IVP 4 mg, administered: 08/08/2016 10:29:00 AM IV NS IV Fluids bolus 0, then 250 mL/hr, administered: 08/08/2016 11:22:00 AM Dilaudid [IVP] IVP 1 mg, administered: 08/08/2016 11:39:00 AM Zofran [IVP] IVP 4 mg, administered: 08/08/2016 11:40:00 AM Dilaudid [IVP] IVP 0.5 mg, administered: 08/08/2016 1:00:00 PM Levsin [SL] SL 0.125 mg, administered: 08/08/2016 2:07:00 PM The following Medications were prescribed to the patient: None.
--- NOTE | 2016-08-08 17:31 | ED MAR SUMMARY ---
..... Medication Administration Record [facility] [address] [place] [address] Patient: AMINAH CORREIA Visit ID: [id number] 66y, M Weight: 108.8 kg Height/Length: 69 in BMI: 35.4 ALLERGIES: No Known Drug Allergy Start 10:28 08/08/2016 Conner Taveras R.N., Stop 11:21 08/08/2016 Conner Taveras R.N. Medication Administered: IV NS (SALINE), Dose: IV Fluids over 1 hour(s), Rate: 1000 mL/hr, Dispensed: 1000 mL bag, Site: #1 left hand. Medication Ordered: IV NS : initial bolus none -, then 1000 mL/hr for X1 (NOW). Given 10:29 08/08/2016 Conner Taveras R.N. Medication Administered: ZOFRAN [IVP] (ONDANSETRON HCL), Dose: 4 mg IVP over 2 minute(s), Site: #1 left hand. Medication Ordered: Zofran IV 4 mg (NOW). Start 11:22 08/08/2016 Conner Taveras R.N., Stop 14:14 08/08/2016 Conner Taveras R.N. Medication Administered: IV NS (SALINE), Dose: IV Fluids over 4 hour(s), Rate: 250 mL/hr, Dispensed: 250 mL bag, Site: #1 left hand. Medication Ordered: IV NS : initial bolus none -, then 250 mL/hr for X4 (NOW). Given 11:39 08/08/2016 Conner Taveras R.N. Medication Administered: DILAUDID [IVP] (HYDROMORPHONE HCL PF), Dose: 1 mg IVP over 2 minute(s), Site: #1 left hand. Medication Ordered: Dilaudid IV 1 mg (HIGH ALERT MEDICATION, NOW). Given 11:40 08/08/2016 Conner Taveras R.N. Medication Administered: ZOFRAN [IVP] (ONDANSETRON HCL), Dose: 4 mg IVP over 2 minute(s), Site: #1 left hand. Medication Ordered: Zofran IV 4 mg (NOW). Given 13:00 08/08/2016 Conner Taveras R.N. Medication Administered: DILAUDID [IVP] (HYDROMORPHONE HCL PF), Dose: 0.5 mg IVP over 2 minute(s), Site: #1 left hand. Medication Ordered: Dilaudid IV 0.5 mg (HIGH ALERT MEDICATION, NOW). Given 14:07 08/08/2016 Conner Taveras R.N. Medication Administered: LEVSIN [SL] (HYOSCYAMINE SULFATE), Dose: 0.125 mg SL. Medication Ordered: Levsin SL 0.125 mg (NOW).
--- NOTE | 2016-08-08 17:31 | ED MAR SUMMARY ---
..... Medication Administration Record [facility] [address] [place] [address] Patient: AMINAH CORREIA Visit ID: [id number] 66y, M Weight: 108.8 kg Height/Length: 69 in BMI: 35.4 ALLERGIES: No Known Drug Allergy Start 10:28 08/08/2016 Conner Taveras R.N., Stop 11:21 08/08/2016 Conner Taveras R.N. Medication Administered: IV NS (SALINE), Dose: IV Fluids over 1 hour(s), Rate: 1000 mL/hr, Dispensed: 1000 mL bag, Site: #1 left hand. Medication Ordered: IV NS : initial bolus none -, then 1000 mL/hr for X1 (NOW). Given 10:29 08/08/2016 Conner Taveras R.N. Medication Administered: ZOFRAN [IVP] (ONDANSETRON HCL), Dose: 4 mg IVP over 2 minute(s), Site: #1 left hand. Medication Ordered: Zofran IV 4 mg (NOW). Start 11:22 08/08/2016 Conner Taveras R.N., Stop 14:14 08/08/2016 Conner Taveras R.N. Medication Administered: IV NS (SALINE), Dose: IV Fluids over 4 hour(s), Rate: 250 mL/hr, Dispensed: 250 mL bag, Site: #1 left hand. Medication Ordered: IV NS : initial bolus none -, then 250 mL/hr for X4 (NOW). Given 11:39 08/08/2016 Conner Taveras R.N. Medication Administered: DILAUDID [IVP] (HYDROMORPHONE HCL PF), Dose: 1 mg IVP over 2 minute(s), Site: #1 left hand. Medication Ordered: Dilaudid IV 1 mg (HIGH ALERT MEDICATION, NOW). Given 11:40 08/08/2016 Conner Taveras R.N. Medication Administered: ZOFRAN [IVP] (ONDANSETRON HCL), Dose: 4 mg IVP over 2 minute(s), Site: #1 left hand. Medication Ordered: Zofran IV 4 mg (NOW). Given 13:00 08/08/2016 Conner Taveras R.N. Medication Administered: DILAUDID [IVP] (HYDROMORPHONE HCL PF), Dose: 0.5 mg IVP over 2 minute(s), Site: #1 left hand. Medication Ordered: Dilaudid IV 0.5 mg (HIGH ALERT MEDICATION, NOW). Given 14:07 08/08/2016 Conner Taveras R.N. Medication Administered: LEVSIN [SL] (HYOSCYAMINE SULFATE), Dose: 0.125 mg SL. Medication Ordered: Levsin SL 0.125 mg (NOW).
--- NOTE | 2016-08-08 17:31 | ED DISCHARGE INSTRUCTIONS ---
Patient: AMINAH CORREIA General Instructions [facility] VisitID: [id number] [address] [place] [address] 66y, M Registration Date/Time: 08/08/2016 Acute abdominal pain of unknown cause. (Electronically signed by Blake Mcdermott MD 08/08/2016 17:31)
--- NOTE | 2016-08-08 17:31 | ED MED RECONCILIATION SUMMARY ---
Patient: AMINAH CORREIA Medication Reconciliation Report [facility] VisitID: [id number] [address] [place] [address] 66y, M Registration Date/Time: 08/08/2016 Weight: 108.8 kg Height/Length: 69 in. BMI: 35.4 ALLERGIES: No Known Drug Allergy The patient's Home Medications are listed below: THE FOLLOWING MEDICATIONS NEED TO BE RECONCILED: Aspirin Oral (325 mg) 1 tablet, daily Losartan Potassium Oral (25 mg) 1 tablet, daily Qvar Inhalation (80 mcg/act) 2 puffs, BID Simvastatin Oral (20 mg) 1 tablet, daily Synjardy 12.06/999 mg 1 tablet BID Tradjenta Oral (5 mg) 1 tablet, daily The source(s) of the original Home Medication information: patient The following Medications were given to the patient in the Emergency Department: IV NS IV Fluids bolus 0, then 1000 mL/hr, administered: 08/08/2016 10:28:00 AM Zofran [IVP] IVP 4 mg, administered: 08/08/2016 10:29:00 AM IV NS IV Fluids bolus 0, then 250 mL/hr, administered: 08/08/2016 11:22:00 AM Dilaudid [IVP] IVP 1 mg, administered: 08/08/2016 11:39:00 AM Zofran [IVP] IVP 4 mg, administered: 08/08/2016 11:40:00 AM Dilaudid [IVP] IVP 0.5 mg, administered: 08/08/2016 1:00:00 PM Levsin [SL] SL 0.125 mg, administered: 08/08/2016 2:07:00 PM The following Medications were prescribed to the patient: None.
--- NOTE | 2016-08-08 17:31 | ED DISCHARGE INSTRUCTIONS ---
Patient: AMINAH CORREIA General Instructions [facility] VisitID: [id number] [address] [place] [address] 66y, M Registration Date/Time: 08/08/2016 Acute abdominal pain of unknown cause. (Electronically signed by Blake Mcdermott MD 08/08/2016 17:31)
[2016-08-08] MEDS ORDERED: TRADJENTA5 MG (19:02)
[2016-08-08] MEDS ORDERED: SYNJARDY 12.5-11 TAB (19:02)
[2016-08-08 19:04] VITALS: BP 135/79
[2016-08-08 20:27] VITALS: BP 135/79
[2016-08-08 22:37] VITALS: BP 141/84
[2016-08-09] VITALS (7 sets, daily range): BP systolic 115–130; BP diastolic 63–84
--- NOTE | 2016-08-09 07:01 | Progress Note ---
Subjective General Patient is doing ok at this time. Less pain but not passing gas and not having BMs. Did vomit last night. No acute issues seen by surgery and more imaging pending. Physical Exam Vital Signs / I&Os Vital Signs Date Time Temp Pulse Resp B/P Pulse O2 O2 Flow FiO2 Ox Delivery Rate 08/09 0643 98.1 84 20 122/65 91 Nasal 4.0 Cannula 08/09 0243 94 18 130/79 90 4.0 08/09 0240 98.8 89 20 130/79 90 Nasal 4.0 Cannula 08/09 0105 86 18 90 4.0 08/08 2256 78 12 90 4.0 08/08 2237 99.0 82 14 141/84 94 Nasal 3.0 Cannula 08/08 2027 76 16 135/79 92 3.0 08/08 1904 99.0 74 13 135/79 92 Nasal 3.0 Cannula 08/08 1730 12 78 Nasal 3.0 Cannula 08/08 1700 82 16 89 2.0 08/08 1632 82 136/48 94 Nasal 2.0 Cannula 08/08 1625 Nasal 1.0 Cannula 08/08 1505 72 16 91 2.0 08/08 1445 97.9 69 18 134/66 93 Room Air I&O 08/09 0000 08/08 1600 08/08 0800 Intake Total 1024 0 Output Total 1025 0 Balance -1 0 General Appearance Alert, Cooperative HEENT Normal exam Lungs Clear to auscultation, Normal air movement Cardiovascular Regular rate and rhythm, No murmurs, gallops, rubs Abdomen distended non focal, decreased BS Extremities No edema LAB Results Laboratory Tests 08/09 08/08 08/08 0515 1140 1132 Chemistry Plasma Sodium (136 - 145 mmol/L) 134 Plasma Potassium (3.5 - 5.1 mmol/L) 4.1 Plasma Chloride (98 - 107 mmol/L) 100 CO2 (Enzymatic) (21 - 32 mmol/L) 19 BUN (7 - 18 mg/dL) 25 Creatinine (0.6 - 1.3 mg/dL) 1.2 Est GFR ( Amer) (mL/min) >60 Est GFR (Non-Af Amer) (mL/min) >60 Glucose (70 - 110 mg/dL) 222 Plasma Calcium (8.5 - 10.1 mg/dL) 7.6 Total Bilirubin (0.0 - 1.0 mg/dL) 1.2 AST (15 - 37 U/L) 52 ALT (12 - 78 U/L) 87 Alkaline Phosphatase (46 - 116 U/L) 58 Total Protein (6.4 - 8.2 g/dL) 7.0 Albumin (3.3 - 5.0 g/dL) 3.5 Amylase Cancelled Lipase (73 - 393 U/L) 119 Cancelled Hematology WBC (4.5 - 11.5 K/uL) 7.6 RBC (4.50 - 5.90 M/uL) 5.90 Hgb (13.5 - 17.5 gm/dL) 17.5 Hct (41.0 - 53.0 %) 53.6 MCV (80 - 100 fL) 91 MCH (26 - 34 pg) 30 RDW (11.6 - 14.8 %) 14.9 Neut % (Auto) (50 - 75 %) 82.3 Lymph % (Auto) (25 - 40 %) 8.3 [place] % (Auto) (3 - 14 %) 9.3 Eos % (Auto) (0 - 4 %) 0.1 Baso % (Auto) (0 - 2 %) 0 Plt Count, EDTA (150 - 400 K/uL) 188 PUBS MCHC (31 - 37 g/dL) 33 Urines Urine Color YELLOW Urine Appearance CLEAR Urine pH (5.0 - 8.0) 5.5 Ur Specific [place] (1.010 - 1.030) 1.015 Urine Protein (NEGATIVE) NEGATIVE Urine Ketones (NEGATIVE) NEGATIVE Urine Blood (NEGATIVE) NEGATIVE Urine Nitrite (NEGATIVE) NEGATIVE Urine Bilirubin (NEGATIVE) NEGATIVE Urine Urobilinogen (0.2 - 1.0 EU/dL) 0.2 Ur Leukocyte Esterase (NEGATIVE) NEGATIVE Urine RBC (0 - 1 rbc/hpf) NONE SEEN Urine WBC (0 - 1 wbc/hpf) 0-1 Ur Epithelial Cells (0 - 5 EPI/hpf) NONE SEEN Urine Bacteria (NONE SEEN) TRACE (<1+) Urine Glucose (NEGATIVE) 3+ Urine Comment CULT NOT INDICATED 08/08 1020 Chemistry Plasma Sodium (136 - 145 mmol/L) 136 Plasma Potassium (3.5 - 5.1 mmol/L) 4.2 Plasma Chloride (98 - 107 mmol/L) 100 CO2 (Enzymatic) (21 - 32 mmol/L) 24 BUN (7 - 18 mg/dL) 17 Creatinine (0.6 - 1.3 mg/dL) 1.0 Est GFR ( Amer) (mL/min) >60 Est GFR (Non-Af Amer) (mL/min) >60 Glucose (70 - 110 mg/dL) 185 Plasma Calcium (8.5 - 10.1 mg/dL) 8.8 Total Bilirubin (0.0 - 1.0 mg/dL) 0.8 AST (15 - 37 U/L) 95 ALT (12 - 78 U/L) 119 Alkaline Phosphatase (46 - 116 U/L) 72 Total Protein (6.4 - 8.2 g/dL) 7.9 Albumin (3.3 - 5.0 g/dL) 4.2 Amylase (25 - 115 U/L) 95 Lipase (73 - 393 U/L) 526 Hematology WBC (4.5 - 11.5 K/uL) 8.6 RBC (4.50 - 5.90 M/uL) 5.93 Hgb (13.5 - 17.5 gm/dL) 17.5 Hct (41.0 - 53.0 %) 52.7 MCV (80 - 100 fL) 89 MCH (26 - 34 pg) 30 RDW (11.6 - 14.8 %) 14.6 Neut % (Auto) (50 - 75 %) 78.4 Lymph % (Auto) (25 - 40 %) 14.7 [place] % (Auto) (3 - 14 %) 6.1 Eos % (Auto) (0 - 4 %) 0.7 Baso % (Auto) (0 - 2 %) 0.1 Plt Count, EDTA (150 - 400 K/uL) 195 PUBS MCHC (31 - 37 g/dL) 33 Assessment and Plan Problem List 1. Small bowel obstruction Plan Seems to have some SBO ? related other process. Has abnl LFTs and now bili but a little. Lipase better this am. 2. Pancreatitis Plan Lipase improved, abd pain improved. Still has no passing gas etc. 3. Abdominal pain Plan IMproved but sob ? need hida scan will discuss with surgery
--- NOTE | 2016-08-09 07:18 | Progress Note ---
Subjective General Patient states he is feeling better than on admission. Patient has not passed flatus or had a bowel movement. No nausea or vomiting. Physical Exam Vital Signs / I&Os Vital Signs Date Time Temp Pulse Resp B/P Pulse O2 O2 Flow FiO2 Ox Delivery Rate 08/09 0643 98.1 84 20 122/65 91 Nasal 4.0 Cannula 08/09 0243 94 18 130/79 90 4.0 08/09 0240 98.8 89 20 130/79 90 Nasal 4.0 Cannula 08/09 0105 86 18 90 4.0 08/08 2256 78 12 90 4.0 I&O 08/08 0800 08/08 1600 08/09 0000 Intake Total 0 1024 Output Total 0 1025 Balance 0 -1 General Appearance Alert, Oriented X3, Cooperative, No acute distress HEENT Atraumatic, PERRLA, EOMI, Moist mucous membranes Lungs Clear to auscultation Neck Supple, No JVD, No masses Cardiovascular Regular rate and rhythm Abdomen normal bowel sounds. Prominent generous abdominal secondary to obesity. No tympany. 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 so than yesterday Extremities No cyanosis, No clubbing, No edema Skin warm and dry Neurological No lateralizing signs Psych/Mental Status Mental status normal, Mood normal LAB Results Laboratory Tests 08/08 08/08 08/08 1020 1132 1140 Chemistry Plasma Sodium (136 - 145 mmol/L) 136 Plasma Potassium (3.5 - 5.1 mmol/L) 4.2 Plasma Chloride (98 - 107 mmol/L) 100 CO2 (Enzymatic) (21 - 32 mmol/L) 24 BUN (7 - 18 mg/dL) 17 Creatinine (0.6 - 1.3 mg/dL) 1.0 Est GFR ( Amer) (mL/min) >60 Est GFR (Non-Af Amer) (mL/min) >60 Glucose (70 - 110 mg/dL) 185 Plasma Calcium (8.5 - 10.1 mg/dL) 8.8 Total Bilirubin (0.0 - 1.0 mg/dL) 0.8 AST (15 - 37 U/L) 95 ALT (12 - 78 U/L) 119 Alkaline Phosphatase (46 - 116 U/L) 72 Total Protein (6.4 - 8.2 g/dL) 7.9 Albumin (3.3 - 5.0 g/dL) 4.2 Amylase (25 - 115 U/L) 95 Cancelled Lipase (73 - 393 U/L) 526 Cancelled Hematology WBC (4.5 - 11.5 K/uL) 8.6 RBC (4.50 - 5.90 M/uL) 5.93 Hgb (13.5 - 17.5 gm/dL) 17.5 Hct (41.0 - 53.0 %) 52.7 MCV (80 - 100 fL) 89 MCH (26 - 34 pg) 30 RDW (11.6 - 14.8 %) 14.6 Neut % (Auto) (50 - 75 %) 78.4 Lymph % (Auto) (25 - 40 %) 14.7 [place] % (Auto) (3 - 14 %) 6.1 Eos % (Auto) (0 - 4 %) 0.7 Baso % (Auto) (0 - 2 %) 0.1 Plt Count, EDTA (150 - 400 K/uL) 195 PUBS MCHC (31 - 37 g/dL) 33 Urines Urine Color YELLOW Urine Appearance CLEAR Urine pH (5.0 - 8.0) 5.5 Ur Specific [place] (1.010 - 1.030) 1.015 Urine Protein (NEGATIVE) NEGATIVE Urine Ketones (NEGATIVE) NEGATIVE Urine Blood (NEGATIVE) NEGATIVE Urine Nitrite (NEGATIVE) NEGATIVE Urine Bilirubin (NEGATIVE) NEGATIVE Urine Urobilinogen (0.2 - 1.0 EU/dL) 0.2 Ur Leukocyte Esterase (NEGATIVE) NEGATIVE Urine RBC (0 - 1 rbc/hpf) NONE SEEN Urine WBC (0 - 1 wbc/hpf) 0-1 Ur Epithelial Cells (0 - 5 EPI/hpf) NONE SEEN Urine Bacteria (NONE SEEN) TRACE (<1+) Urine Glucose (NEGATIVE) 3+ Urine Comment CULT NOT INDICATED 08/09 0515 Chemistry Plasma Sodium (136 - 145 mmol/L) 134 Plasma Potassium (3.5 - 5.1 mmol/L) 4.1 Plasma Chloride (98 - 107 mmol/L) 100 CO2 (Enzymatic) (21 - 32 mmol/L) 19 BUN (7 - 18 mg/dL) 25 Creatinine (0.6 - 1.3 mg/dL) 1.2 Est GFR ( Amer) (mL/min) >60 Est GFR (Non-Af Amer) (mL/min) >60 Glucose (70 - 110 mg/dL) 222 Plasma Calcium (8.5 - 10.1 mg/dL) 7.6 Total Bilirubin (0.0 - 1.0 mg/dL) 1.2 AST (15 - 37 U/L) 52 ALT (12 - 78 U/L) 87 Alkaline Phosphatase (46 - 116 U/L) 58 Total Protein (6.4 - 8.2 g/dL) 7.0 Albumin (3.3 - 5.0 g/dL) 3.5 Lipase (73 - 393 U/L) 119 Hematology WBC (4.5 - 11.5 K/uL) 7.6 RBC (4.50 - 5.90 M/uL) 5.90 Hgb (13.5 - 17.5 gm/dL) 17.5 Hct (41.0 - 53.0 %) 53.6 MCV (80 - 100 fL) 91 MCH (26 - 34 pg) 30 RDW (11.6 - 14.8 %) 14.9 Neut % (Auto) (50 - 75 %) 82.3 Lymph % (Auto) (25 - 40 %) 8.3 [place] % (Auto) (3 - 14 %) 9.3 Eos % (Auto) (0 - 4 %) 0.1 Baso % (Auto) (0 - 2 %) 0 Plt Count, EDTA (150 - 400 K/uL) 188 PUBS MCHC (31 - 37 g/dL) 33 Assessment and Plan Problem List 1. Small bowel obstruction Plan A repeat upright abdominal x-ray this morning. Results pending 2. Pancreatitis Plan Lipase normal. Liver function is down slightly. Total bilirubin 1.2. Dr. Delcid is planning on obtaining a HIDA scan later today.
--- NOTE | 2016-08-09 07:28 | DIAGNOSTIC IMAGING REPORT ---
PROCEDURE: XR ABDOMEN 1 VIEW UPRIGHT INDICATION: Follow-up bowel obstruction. TECHNIQUE: AP upright view. COMPARISON: Comparison is made to abdominal radiograph on 08/08/2016. FINDINGS: There is increased fluid throughout the small bowel assess with multiple air-fluid levels. There is moderate fluid distention of the stomach. There is no evidence of free air. Surgical clips are seen in the epigastric region. IMPRESSION: 1. Moderate to high-grade small bowel obstruction. 2. Findings discussed with Dr. Domínguez.
--- NOTE | 2016-08-09 16:02 | DIAGNOSTIC IMAGING REPORT ---
PROCEDURE: NM HEPATOBILIARY IMAGING INDICATION: Elevated bilirubin and liver function studies. TECHNIQUE: 8 mCi technetium 99m Choletec injected intravenously. Sequential images were acquired over a 1 hour time interval. Subsequently, the patient ingested a fatty meal (milk) with images acquired over a 1 hour time interval, followed by calculation of gallbladder ejection fraction. COMPARISON: Comparison is made abdominal ultrasound 08/08/2016. FINDINGS: Liver uptake is normal. Common duct and gallbladder visualized at 11 minutes. Bowel activity is seen at 25 minutes. Gallbladder ejection fraction is calculated at 17% IMPRESSION: 1. Diminished gallbladder ejection fraction (17%) which may be a reflection of narcotic medication or gallbladder dysfunction. 2. Patent cystic and common ducts. No evidence of biliary obstruction.
[2016-08-10 02:00] VITALS: BP 110/60
--- NOTE | 2016-08-10 06:58 | DIAGNOSTIC IMAGING REPORT ---
PROCEDURE: XR ABDOMEN 1 VIEW INDICATION: sbo---partial TECHNIQUE: AP supine view. COMPARISON: None. FINDINGS: Mild dilation of central loops of small bowel, now with air throughout the large bowel. Findings suggestive of resolving obstruction or ileus. Epigastric surgical clips. There is no mass or suspicious calcification. Mild degenerative changes of the spine. IMPRESSION: 1. Resolving small bowel obstruction versus ileus
[2016-08-10 07:16] VITALS: BP 109/68
--- NOTE | 2016-08-10 07:31 | Progress Note ---
Subjective General 66-year-old male, hospital day 2 partial small bowel obstruction. Passing flatus having bowel movements. Not experiencing crampy abdominal pain. Anxious to eat and go home. Physical Exam Vital Signs / I&Os Vital Signs Date Time Temp Pulse Resp B/P Pulse O2 O2 Flow FiO2 Ox Delivery Rate 08/10 0716 98.1 59 16 109/68 98 Room Air 08/10 0200 98.1 62 16 110/60 95 Room Air 08/09 2319 98.2 66 18 115/64 93 Room Air 08/09 2114 67 20 95 Room Air I&O 08/09 0800 08/09 1600 08/10 0000 Intake Total 1901 1463 733 Output Total 575 1200 750 Balance 1326 263 -17 General Appearance Alert, Oriented X3, Cooperative, No acute distress HEENT Atraumatic, PERRLA, EOMI, Moist mucous membranes Lungs Clear to auscultation Neck No JVD, No masses, No thyromegaly, No lymphadenopathy, 2+ carotid pulse wo bruit Cardiovascular Regular rate and rhythm Abdomen Normal bowel sounds, Soft, No tenderness, generous prominent abdomen secondary to obesity Extremities No cyanosis, No clubbing, No edema Skin skin is warm and dry Neurological No lateralizing signs Psych/Mental Status Mental status normal Imaging Review of low abdominal x-ray this morning shows nonspecific air pattern no evidence of air-fluid levels. Assessment and Plan Problem List 1. Abdominal pain Plan Abdominal pain is resolved 2. Small bowel obstruction Plan Patient passing flatus and having bowel movements. Resolved partial small bowel obstruction. Start clear liquid diet. Patient tolerates DC home on a clear liquid diet for a minimum of 2-3 days. Followup with primary care provider as needed for routinely is clear.
--- NOTE | 2016-08-10 08:01 | Discharge Summary ---
Discharge Summary Report Admit Date 08/09/16 Discharge Date 08/10/16 Admission Diagnosis Small bowel obstruction, abdominal pain Discharge Diagnosis SBO, abd pain Brief History Started NPO and refused NGT; with a couple days patient resolved with pain. Patient now is feeling well at this time. Has lots of gas and bowel movements. Hx of SBO and symptoms came back. Hospital Course as above: NPO and spontaneous resolution, Surgical eval and SBO improved on xray. General Appearance Alert, Cooperative HEENT Atraumatic Lungs Clear to auscultation, Normal air movement Cardiovascular Regular Rate Abdomen Soft, No tenderness, pos BS Skin No Rashes Lab/Imaging Xray: resolving SBO Discharge Instructions/Meds Diet as per surgery but keep liq then advance as tolerates.
--- NOTE | 2016-08-10 08:04 | Provider's Discharge Care Plan ---
Problem, Goal, Plan Problem List 1. Small bowel obstruction Instructions: Follow up as directed, resume home meds as prior to admit 2. Abdominal pain Instructions: rtc sooner if concerns
== END 2016-08-10 10:00 | disposition home or self-care (01) | DRG 388 ==
LOC: ED SRH 10:00 → TRANS SRH 13:25 → ACUTE2 SRH 14:39
PROVIDERS: ADMIT Family Medicine
DX: K56.60 Unspecified intestinal obstruction (principal); K85.90 Acute pancreatitis without necrosis or infection, unspecified; E11.9 Type 2 diabetes mellitus without complications; Z79.84 Long term (current) use of oral hypoglycemic drugs; E78.00 Pure hypercholesterolemia, unspecified; K76.0 Fatty (change of) liver, not elsewhere classified; J44.9 Chronic obstructive pulmonary disease, unspecified; Z90.49 Acquired absence of other specified parts of digestive tract